=== PATIENT | female | born 1950 | race Caucasian/White ===

== ENCOUNTER 2017-03-28 07:41 | Emergency (ER) | payer MEDICARE, OTHER ==
[~2017-03-28] VITALS: Ht 154.9 cm; Wt 65.0 kg
[~2017-03-28 07:41] MED LIST: AMLO-145 PO; ASPI-664 PO; ATOR20TA38 PO; DOCU-144 PO; HYDR-906 PO; HYDR12.58 PO; METO25TA7 PO; NIT4 SL; PANT40TA4 PO; TIZA4TAB PO; TRAM50TA2 PO
[2017-03-28 07:43] VITALS: Ht 154.9 cm; Wt 65.0 kg
[2017-03-28 08:40] LABS: BASOPHILS % 0.3 % (0.0-2.0); EOSINOPHILS # 0.2 10^3/ul (0.0-0.5); EOSINOPHILS % 3.7 % (0.0-7.0); HEMATOCRIT 39.8 % (37.0-47.0); HEMOGLOBIN 13.1 g/dl (12.0-16.0); LYMPHOCYTES # 1.7 10^3/ul (0.8-2.9); LYMPHOCYTES % 28.6 % (15.0-51.0); MEAN CORPUSCULAR HEMOGLOBIN 29.8 pg (29.0-33.0); MEAN CORPUSCULAR HGB CONC 32.9 g/dl (32.0-37.0); MEAN CORPUSCULAR VOLUME 90.5 fl (82.0-101.0); MEAN PLATELET VOLUME 10.8 fl (7.4-10.4); MONOCYTE # 0.4 10^3/ul (0.3-0.9); MONOCYTES % 7.4 % (0.0-11.0); NEUTROPHIL # 3.5 10^3/ul (1.6-7.5); NEUTROPHILS % 59.5 % (39.0-77.0); PLATELET COUNT 305 10^3/UL (140-415); RED CELL DISTRIBUTION WIDTH 13.4 % (11.5-14.5); WHITE BLOOD COUNT 5.9 10^3/ul (4.8-10.8)
[2017-03-28 09:19] LABS: ALBUMIN 4.5 g/dl (3.3-4.9); ALBUMIN/GLOBULIN RATIO 1.18; BILIRUBIN,INDIRECT 0.6 mg/dl (0-1.1); BILIRUBIN,TOTAL 0.6 mg/dl (0.2-1.3); CALCIUM 9.8 mg/dl (8.4-10.2); CREATININE 0.86 mg/dl (0.44-1.00); POTASSIUM 4.3 mmol/L (3.5-5.1); TOTAL PROTEIN 8.3 g/dl (6.1-8.1)
[2017-03-28 11:00] LABS: ADD UMIC NO; UR ASCORBIC ACID NEGATIVE (NEGATIVE); UR BILIRUBIN (Dip) NEGATIVE (NEGATIVE); UR BLOOD (Dip) NEGATIVE (NEGATIVE); UR CLARITY CLEAR (CLEAR); UR COLOR STRAW (YELLOW); UR GLUCOSE (Dip) NEGATIVE (NEGATIVE); UR KETONES (Dip) NEGATIVE (NEGATIVE); UR LEUKOCYTE ESTERASE (Dip) NEGATIVE Leu/ul (NEGATIVE); UR NITRITE (Dip) NEGATIVE (NEGATIVE); UR SPECIFIC GRAVITY (Dip) 1.006 (1.003-1.030); UR TOTAL PROTEIN (Dip) NEGATIVE (NEGATIVE); UR UROBILINOGEN (Dip) NEGATIVE (NEGATIVE)
[2017-03-28 11:34] VITALS: BP 156/78; PULSE 76; RESP 20; TEMP 98
--- NOTE | 2017-03-28 13:09 | ERD ---
ER Documentation Chief Complaint Date/Time DATE: 03/28/17 TIME: 13:04 Chief Complaint PT WITH HYPERTENTION, VOMITING AND WEAKNESS x 3 DAYS. HPI 66-year-old female coming in complaining of hypertension. Patient states she feels occasional weakness and woke up this morning sweating. Denies shortness of breath. Denies chest pain. Denies dizziness. Denies vomiting. She has taking her high blood pressure medication without complication. She states she felt different this morning and wanted to be evaluated. Denies any numbness or tingling. Medical history: Hypertension, hypothyroidism. NKDA. Surgical history: Hysterectomy ROS All systems reviewed and are negative except as per history of present illness. Medications Home Meds Active Scripts Docusate Sodium* (Colace*) 100 Mg Capsule, 100 MG PO BID, #60 CAP Prov:HILDA MARTINEZ MD 05/18/16 Hydrochlorothiazide* (Hydrochlorothiazide*) 12.5 Mg Tablet, 12.5 MG PO DAILY, # 30 TAB Prov:HILDA MARTINEZ MD 05/18/16 Nitroglycerin* (Nitrostat*) 0.4 Mg Tab.subl, 1 TAB SL .Q5M UP TO 3 DOSES Y for CHEST PAIN, #30 Prov:HILDA MARTINEZ MD 05/18/16 Metoprolol Succinate* (Toprol XL*) 25 Mg Tab.sr.24h, 25 MG PO DAILY, #30 Prov:HILDA MARTINEZ MD 05/18/16 Amlodipine Besylate* (Amlodipine Besylate*) 5 Mg Tablet, 10 MG PO DAILY, #30 TAB Prov:HILDA MARTINEZ MD 05/18/16 Tizanidine Hcl* (Tizanidine Hcl*) 4 Mg Tablet, 4 MG PO Q6H Y for SPASTICITY, # 12 TAB Prov:MINISTERIO WOODS DO 05/14/16 Tramadol HCl (Tramadol HCl) 50 Mg Tablet, 50 MG PO Q6, #15 TAB Prov:MINISTERIO WOODS DO 05/14/16 Hydrocodone/Acetaminophen ([place] 5-325 Tablet) 1 Each Tablet, 1 TAB PO Q6H Y for PAIN, #7 TAB Prov:EMILY ANDREA MD 05/13/16 Reported Medications Atorvastatin Calcium* (Atorvastatin Calcium*) 20 Mg Tablet, 20 MG PO QHS, #30 TAB 05/17/16 Pantoprazole* (Pantoprazole*) 40 Mg Tablet.dr, 40 MG PO AC BREAKFAST, TAB 05/02/15 Aspirin* (Aspirin* EC) 81 Mg Tablet.dr, 81 MG PO DAILY, TAB 05/02/15 Allergies Allergies: Coded Allergies: amlodipine (Verified Allergy, Intermediate, per pt feels warm, 05/18/16) tramadol (Verified Adverse Reaction, Intermediate, per pt gets warm , 05/18) PMhx/Soc History of Surgery: Yes (hysterrectomy) Anesthesia Reaction: No Hx Neurological Disorder: Yes Hx Respiratory Disorders: No Hx Cardiac Disorders: Yes (hypertension) Hx Psychiatric Problems: No Hx Miscellaneous Medical Probl: No Hx Alcohol Use: No Hx Substance Use: No Hx Tobacco Use: No Smoking Status: Never smoker Physical Exam Vitals Vital Signs Date Time Temp Pulse Resp B/P Pulse Ox O2 Delivery O2 Flow Rate FiO2 03/28/17 11:34 98.0 76 20 156/78 99 Room Air 03/28/17 07:43 97.3 78 20 180/79 99 Physical Exam GENERAL: The patient is well-appearing, well-nourished, in no acute distress HEENT: Atraumatic. Conjunctivae are pink. Pupils equal, round, and reactive to light. There is no scleral icterus. Tympanic membranes clear bilaterally. Oropharynx clear. No nystagmus or photophobia. NECK: C-spine is soft and supple. There is no meningismus. There is no cervical lymphadenopathy. No JVD. No bruits. No goiter. CHEST: Clear to auscultation bilaterally. There are no rales, wheezes or rhonchi. HEART: Regular rate and rhythm. No murmurs, clicks, rubs or gallops. No S3 or S4. ABDOMEN:Soft, nontender and nondistended. Good bowel sounds. No rebound or guarding. No gross peritonitis. No gross organomegaly or masses. No Livingston sign or McBurney point tenderness. NEUROLOGIC: Alert and oriented. Cranial nerves II through XII intact. Motor strength in all 4 extremities with 5 out of 5 strength. Sensation grossly intact. Normal speech and gait. Babinski negative. DTR 2+ throughout. Result Diagram: 03/28/17 0810 03/28/17 0810 Results 24 hrs Laboratory Tests Test 03/28/17 08:10 03/28/17 10:44 White Blood Count 5.910^3/ul Red Blood Count 4.4010^6/ul Hemoglobin 13.1g/dl Hematocrit 39.8% Mean Corpuscular Volume 90.5fl Mean Corpuscular Hemoglobin 29.8pg Mean Corpuscular Hemoglobin Concent 32.9g/dl Red Cell Distribution Width 13.4% Platelet Count 59023^3/UL Mean Platelet Volume 10.8fl Neutrophils % 59.5% Lymphocytes % 28.6% Monocytes % 7.4% Eosinophils % 3.7% Basophils % 0.3% Nucleated Red Blood Cells % 0.0/100WBC Neutrophils # 3.510^3/ul Lymphocytes # 1.710^3/ul Monocytes # 0.410^3/ul Eosinophils # 0.210^3/ul Basophils # 0.010^3/ul Nucleated Red Blood Cells # 0.010^3/ul Sodium Level 137mmol/L Potassium Level 4.3mmol/L Chloride Level 102mmol/L Carbon Dioxide Level 24mmol/L Anion Gap 15 Blood Urea Nitrogen 18mg/dl Creatinine 0.86mg/dl Glucose Level 135mg/dl Calcium Level 9.8mg/dl Total Bilirubin 0.6mg/dl Direct Bilirubin 0.00mg/dl Indirect Bilirubin 0.6mg/dl Aspartate Amino Transf (AST/SGOT) 37IU/L Alanine Aminotransferase (ALT/SGPT) 52IU/L Alkaline Phosphatase 100IU/L Total Protein 8.3g/dl Albumin 4.5g/dl Globulin 3.80g/dl Albumin/Globulin Ratio 1.18 Lipase 56U/L Urine Color STRAW Urine Clarity CLEAR Urine pH 6.0 Urine Specific [place] 1.006 Urine Ketones NEGATIVEmg/dL Urine Nitrite NEGATIVEmg/dL Urine Bilirubin NEGATIVEmg/dL Urine Urobilinogen NEGATIVEmg/dL Urine Leukocyte Esterase NEGATIVELeu/ul Urine Hemoglobin NEGATIVEmg/dL Urine Glucose NEGATIVEmg/dL Urine Total Protein NEGATIVEmg/dl Procedures/MDM EKG: NSR. 64 BPM. Normal axis. No arrhythmias. No STEMI Reviewed and signed off by Dr. Arguello. MDM: I have low suspicion for cardiac or pulmonary emergency. I have low suspicion for hypertension emergency. Patient's exam is not concerning patient' s vital signs are stable and patient is nontoxic-appearing. I have low suspicion for electrolyte abnormality. I have low suspicion for sepsis or infectious etiology. Patient's blood work was within normal limits. Patient's urine was within normal limits. Patient's exams were not concerning. Patient is recommended to follow-up with primary care physician within 1 to days for close evaluation. Patient is given strict ER precautions at the time of discharge. All the questions at the time of discharge. Departure Diagnosis: Primary Impression: Multiple complaints Condition: Stable Patient Instructions: High Blood Pressure (Hypertension) Referrals: [facility] YOU HAVE RECEIVED A MEDICAL SCREENING EXAM AND THE RESULTS INDICATE THAT YOU DO NOT HAVE A CONDITION THAT REQUIRES URGENT TREATMENT IN THE EMERGENCY DEPARTMENT. FURTHER EVALUATION AND TREATMENT OF YOUR CONDITION CAN WAIT UNTIL YOU ARE SEEN IN YOUR DOCTORS OFFICE WITHIN THE NEXT 1-2 DAYS. IT IS YOUR RESPONSIBILITY TO MAKE AN APPOINTMENT FOR FOLOW-UP CARE. IF YOU HAVE A PRIMARY DOCTOR --you should call your primary doctor and schedule an appointment IF YOU DO NOT HAVE A PRIMARY DOCTOR YOU CAN CALL OUR PHYSICIAN REFERRAL HOTLINE AT IF YOU CAN NOT AFFORD TO SEE A PHYSICIAN YOU CAN CHOSE FROM THE FOLLOWING [facility] [address] [facility]. [facility] [address] [facility] [facility] [address] [facility] [facility] [address] [facility]. [facility] [address] [facility]. [facility]. [address] Additional Instructions: FOLLOW UP WITH YOUR PRIMARY CARE PHYSICIAN TOMORROW.Return to this facility if you are not improving as expected. NGOZI WERNER PA-C Mar 28, 2017 13:09
== END 2017-03-28 11:34 | disposition home or self-care (01) ==
LOC: FTE 07:41
DX: R53.1 Weakness (principal); I10 Essential (primary) hypertension; E03.9 Hypothyroidism, unspecified; Z79.82 Long term (current) use of aspirin
CPT/HCPCS: 36415; 80053; 81003; 83690; 85025; 93005

== ENCOUNTER 2017-05-26 16:31 | Emergency (ER) | payer MEDICARE, OTHER ==
[~2017-05-26] VITALS: Ht 152.4 cm; Wt 70.0 kg
[~2017-05-26 16:31] MED LIST changes: +METO-335 PO; -METO25TA7 PO
[2017-05-26 16:35] VITALS: Ht 152.4 cm; Wt 70.0 kg
[2017-05-26] MEDS ORDERED: LEVO50TA74 PO (20:09)
[2017-05-26] MEDS ORDERED: ONDA8TAB83 PO (20:09)
--- NOTE | 2017-05-26 20:10 | ERD ---
ER Documentation Chief Complaint Date/Time DATE: 05/26/17 TIME: 20:10 Chief Complaint chest pain which radiates to the left arm since this morning HPI 66-year-old woman complains of chest pain 2 days it has been sharp and radiating to the left arm. She states she has had similar symptoms in the past. She denies history of [place]. She has had no shortness of breath, no fevers or chills, no cough, no claudication, no calf or leg swelling. ROS All systems reviewed and are negative except as per history of present illness. Medications Home Meds Active Scripts Mag Hydrox/Al Hydrox/Simeth (Maalox Advanced Suspension) 355 Ml Oral.susp, 2 TSP PO TID for PAIN, #24 OZ Prov:RIUT PIERSON MD 05/26/17 Naproxen* (Naprosyn*) 500 Mg Tablet, 500 MG PO BID Y for PAIN AND/OR INFLAMMATION, #30 TAB Prov:RITU PIERSON MD 05/26/17 Reported Medications Acetaminophen (Mapap) 500 Mg Capsule, 500 MG PO Q6H Y for PAIN, CAP 05/26/17 Hydrochlorothiazide* (Hydrochlorothiazide*) 25 Mg Tab, 25 MG PO DAILY, #30 TAB 05/26/17 Metoprolol Succinate* (Toprol XL*) 50 Mg Tab.er.24h, 75 MG PO BID, #30 TAB 05/26/17 Ondansetron Hcl* (Ondansetron Hcl*) 8 Mg Tablet, 8 MG PO Q8, TAB 05/26/17 Levothyroxine Sodium* (Levothyroxine Sodium*) 50 Mcg Tablet, 50 MCG PO BEFORE BREAKFAST, #30 TAB 05/26/17 Atorvastatin Calcium* (Atorvastatin Calcium*) 20 Mg Tablet, 20 MG PO QHS, #30 TAB 05/17/16 Pantoprazole* (Pantoprazole*) 40 Mg Tablet.dr, 40 MG PO AC BREAKFAST, TAB 05/02/15 Aspirin* (Aspirin* EC) 81 Mg Tablet.dr, 81 MG PO DAILY, TAB 05/02/15 Discontinued Scripts Docusate Sodium* (Colace*) 100 Mg Capsule, 100 MG PO BID, #60 CAP Prov:HILDA MARTINEZ MD 05/18/16 Hydrochlorothiazide* (Hydrochlorothiazide*) 12.5 Mg Tablet, 12.5 MG PO DAILY, # 30 TAB Prov:HILDA MARTINEZ MD 05/18/16 Nitroglycerin* (Nitrostat*) 0.4 Mg Tab.subl, 1 TAB SL .Q5M UP TO 3 DOSES Y for CHEST PAIN, #30 Prov:HILDA MARTINEZ MD 05/18/16 Metoprolol Succinate* (Toprol XL*) 25 Mg Tab.sr.24h, 25 MG PO DAILY, #30 Prov:HILDA MARTINEZ MD 05/18/16 Amlodipine Besylate* (Amlodipine Besylate*) 5 Mg Tablet, 10 MG PO DAILY, #30 TAB Prov:HILDA MARTINEZ MD 05/18/16 Tizanidine Hcl* (Tizanidine Hcl*) 4 Mg Tablet, 4 MG PO Q6H Y for SPASTICITY, # 12 TAB Prov:MINISTERIO WOODS DO 05/14/16 Tramadol HCl (Tramadol HCl) 50 Mg Tablet, 50 MG PO Q6, #15 TAB Prov:MINISTERIO WOODS DO 05/14/16 Hydrocodone/Acetaminophen ([place] 5-325 Tablet) 1 Each Tablet, 1 TAB PO Q6H Y for PAIN, #7 TAB Prov:EMILY ANDREA MD 05/13/16 Allergies Allergies: Coded Allergies: amlodipine (Verified Allergy, Intermediate, per pt feels warm, 05/26/17) tramadol (Verified Adverse Reaction, Intermediate, per pt gets warm , 07/31) PMhx/Soc History of atypical chest pain, hypertension History of Surgery: Yes (hysterrectomy) Anesthesia Reaction: No Hx Neurological Disorder: Yes Hx Respiratory Disorders: No Hx Cardiac Disorders: Yes (hypertension) Hx Psychiatric Problems: No Hx Miscellaneous Medical Probl: No Hx Alcohol Use: No Hx Substance Use: No Hx Tobacco Use: No Smoking Status: Never smoker Physical Exam Vitals Vital Signs Date Time Temp Pulse Resp B/P Pulse Ox O2 Delivery O2 Flow Rate FiO2 05/26/17 22:23 73 20 137/67 100 Room Air 05/26/17 21:22 63 17 164/73 98 Room Air 05/26/17 19:43 69 17 150/85 100 Room Air 05/26/17 16:35 98.5 92 19 186/84 99 Physical Exam Const: [] Head: Atraumatic Eyes: Normal Conjunctiva ENT: Normal External Ears, Nose and Mouth. Neck: Full range of motion..~ No meningismus. Resp: Clear to auscultation bilaterally Cardio: Regular rate and rhythm, no murmurs Abd: Soft, non tender, non distended. Normal bowel sounds Skin: No petechiae or rashes Back: No midline or flank tenderness Ext: No cyanosis, or edema Neur: Awake and alert Psych: Normal Mood and Affect Result Diagram: 05/26/17192905/26/171929 Results 24 hrs Laboratory Tests Test 05/26/17 19:30 White Blood Count 9.210^3/ul Red Blood Count 4.3510^6/ul Hemoglobin 12.8g/dl Hematocrit 39.1% Mean Corpuscular Volume 89.9fl Mean Corpuscular Hemoglobin 29.4pg Mean Corpuscular Hemoglobin Concent 32.7g/dl Red Cell Distribution Width 13.3% Platelet Count 46258^3/UL Mean Platelet Volume 10.5fl Neutrophils % 54.8% Lymphocytes % 31.8% Monocytes % 9.4% Eosinophils % 3.4% Basophils % 0.3% Nucleated Red Blood Cells % 0.0/100WBC Neutrophils # 5.010^3/ul Lymphocytes # 2.910^3/ul Monocytes # 0.910^3/ul Eosinophils # 0.310^3/ul Basophils # 0.010^3/ul Nucleated Red Blood Cells # 0.010^3/ul Sodium Level 135mmol/L Potassium Level 3.3mmol/L Chloride Level 96mmol/L Carbon Dioxide Level 27mmol/L Anion Gap 15 Blood Urea Nitrogen 14mg/dl Creatinine 0.78mg/dl Glucose Level 125mg/dl Calcium Level 9.3mg/dl Total Bilirubin 0.6mg/dl Direct Bilirubin 0.00mg/dl Indirect Bilirubin 0.6mg/dl Aspartate Amino Transf (AST/SGOT) 47IU/L Alanine Aminotransferase (ALT/SGPT) 61IU/L Alkaline Phosphatase 102IU/L Troponin I < 0.012ng/ml Total Protein 8.4g/dl Albumin 4.6g/dl Globulin 3.80g/dl Albumin/Globulin Ratio 1.21 Lipase 53U/L Current Medications Medications (Trade) Dose Ordered Sig/Santy Route PRN Reason Start Time Stop Time Status Last Admin Dose Admin Sodium Chloride (NS) 1,000 ml @ 1,000 mls/hr Q1H STAT IV 05/26/17 20:12 05/26/17 21:11 DC 05/26/17 20:33 Ketorolac Tromethamine (Toradol) 15 mg ONCE STAT IV 05/26/17 20:12 05/26/17 20:13 DC 05/26/17 20:33 Lorazepam (Ativan) 0.5 mg ONCE ONCE PO 05/26/17 20:30 05/26/17 20:31 DC 05/26/17 20:33 Procedures/MDM IV line was established patient was placed on cardiac cath rn rhythm strip revealed a sinus rhythm at about 80 bpm with upright P and T waves. Patient was afebrile. EKG performed, read by me: 87 bpm, normal sinus rhythm, normal axis, no acute ST segment changes, narrow QRS complex, with good R-wave progression in precordial leads. One AP view of the chest performed, read by me reveals no acute infiltrates, normal mediastinum, sharp costophrenic and cardiac borders, no air under the diaphragm. Otherwise unremarkable chest x-ray. I administered 1 L normal saline intravenously, Toradol 15 mg IV, lorazepam 0.5 mg p.o. with complete resolution of pain. CBC and electrolytes are normal, liver function tests are normal, troponin was negative. The patient's history, physical exam and clinical presentation is concerning for possible cardiogenic etiology and acute coronary syndrome. Based on the patient's clinical exam and history and risk factors, I have a much lower clinical concern for pulmonary embolism, acute aortic dissection, pneumothorax, pneumonia, cardiac tamponade HEART Score: 3 for age and risk factors MACE Rate: 1.7 Shared Decision Making: We had a conversation regarding risk stratification, MACE rate, and the risks, benefits, alternatives of disposition planning options. Disposition planning: Patient symptoms resolved and she wanted to go home Differential diagnoses considered, included but not limited to acute coronary syndrome, pulmonary embolism, aortic dissection, abdominal aortic aneurysm, sepsis, stroke, meningitis, encephalitis, pneumonia, appendicitis, cholecystitis , bowel obstruction, pyelonephritis, nephrolithiasis, cystitis, as well as metabolic, hematologic, and electrolyte abnormalities. As well as abscess, cellulitis, fractures, and dislocations. Patient feels much better at this time, and vital signs are normal, symptoms have improved. I did give strict instructions to return to the ED if symptoms continue or worsen, patient will otherwise follow-up with primary care physician. Patient understood instructions and agreed to plan. Disclaimer: Inadvertent spelling and grammatical errors are likely due to EHR/ dictation software use and do not reflect on the overall quality of patient care. Also, please note that the electronic time recorded on this note does not necessarily reflect the actual time of the patient encounter. Departure Diagnosis: Primary Impression: Chest pain Chest pain type: unspecified Qualified Code: R07.9 - Chest pain, unspecified type Condition: RITU Castillo MD May 26, 2017 20:10
[2017-05-26] MEDS ORDERED: METO-319 PO (20:11)
[2017-05-26] MEDS ORDERED: HYDR25TA6 PO (20:11)
[2017-05-26] MEDS ORDERED: SOD CHLORIDE 0.9% 1,000 ML IV STA (20:12)
[2017-05-26] MEDS ORDERED: KETOROLAC 15 MG INJ IV STA (20:12)
[2017-05-26] MEDS ORDERED: ACET500C3 PO (20:12)
[2017-05-26 20:26] LABS: BASOPHILS % 0.3 % (0.0-2.0); EOSINOPHILS # 0.3 10^3/ul (0.0-0.5); EOSINOPHILS % 3.4 % (0.0-7.0); HEMATOCRIT 39.1 % (37.0-47.0); HEMOGLOBIN 12.8 g/dl (12.0-16.0); LYMPHOCYTES # 2.9 10^3/ul (0.8-2.9); LYMPHOCYTES % 31.8 % (15.0-51.0); MEAN CORPUSCULAR HEMOGLOBIN 29.4 pg (29.0-33.0); MEAN CORPUSCULAR HGB CONC 32.7 g/dl (32.0-37.0); MEAN CORPUSCULAR VOLUME 89.9 fl (82.0-101.0); MEAN PLATELET VOLUME 10.5 fl (7.4-10.4); MONOCYTE # 0.9 10^3/ul (0.3-0.9); MONOCYTES % 9.4 % (0.0-11.0); NEUTROPHILS % 54.8 % (39.0-77.0); PLATELET COUNT 330 10^3/UL (140-415); RED BLOOD COUNT 4.35 10^6/ul (4.20-5.40); RED CELL DISTRIBUTION WIDTH 13.3 % (11.5-14.5); WHITE BLOOD COUNT 9.2 10^3/ul (4.8-10.8)
[2017-05-26] MEDS ORDERED: LORAZEPAM 0.5 MG TAB PO ONE (20:30)
[2017-05-26 20:35] LABS: ALANINE AMINOTRANSFERASE 61 IU/L (13-69); ALBUMIN 4.6 g/dl (3.3-4.9); ALBUMIN/GLOBULIN RATIO 1.21; ALKALINE PHOSPHATASE 102 IU/L (42-121); ANION GAP 15 (8-16); ASPARTATE AMINO TRANSFERASE 47 IU/L (15-46); BILIRUBIN,INDIRECT 0.6 mg/dl (0-1.1); BILIRUBIN,TOTAL 0.6 mg/dl (0.2-1.3); BLOOD UREA NITROGEN 14 mg/dl (7-20); CALCIUM 9.3 mg/dl (8.4-10.2); CARBON DIOXIDE 27 mmol/L (21-31); CHLORIDE 96 mmol/L (97-110); CREATININE 0.78 mg/dl (0.44-1.00); GLUCOSE 125 mg/dl (70-220); POTASSIUM 3.3 mmol/L (3.5-5.1); SODIUM 135 mmol/L (135-144); TOTAL PROTEIN 8.4 g/dl (6.1-8.1)
[2017-05-26 20:49] LABS: TROPONIN-I < 0.012 ng/ml (0.00-0.12)
--- NOTE | 2017-05-26 20:59 | RADRPT ---
PROCEDURE: XR Chest. CLINICAL INDICATION: Chest and abdomen pain. TECHNIQUE: Single frontal view. COMPARISON: 05/16/2016. FINDINGS: The lungs are clear. The heart size is normal. There is calcification in the aorta consistent with atherosclerosis. There is no pleural effusion. There is no pneumothorax. IMPRESSION: 1. Atherosclerosis. 2. Otherwise normal chest x-ray. RPTAT: QQ .Ac Jade MD, MD Date Time Electronically viewed and signed by .Ac Jade MD, on 05/26/2017 20:58 .R/
[2017-05-26] MEDS ORDERED: NAPR-260 PO (21:51)
[2017-05-26] MEDS ORDERED: MAG355OR14 PO (21:51)
[2017-05-26 22:23] VITALS: BP 137/67; PULSE 73; RESP 20
== END 2017-05-26 22:20 | disposition home or self-care (01) ==
LOC: E/R 16:31
DX: R07.9 Chest pain, unspecified (principal); I10 Essential (primary) hypertension; Z79.82 Long term (current) use of aspirin
CPT/HCPCS: 36415; 71010; 80053; 83690; 84484; 85025; 96374; 99284; J1885; J7030

== ENCOUNTER 2018-11-29 19:58 | Emergency (ER) | payer MEDICARE, OTHER ==
[~2018-11-29] VITALS: Ht 152.4 cm; Wt 66.0 kg
[~2018-11-29 19:58] MED LIST changes: +ACET500C3 PO; -AMLO-145 PO; -ASPI-664 PO; +ASPI-817 PO; -DOCU-144 PO; -HYDR-906 PO; -HYDR12.58 PO; +HYDR25TA6 PO; +LEVO50TA7 PO; +MAG355OR14 PO; +METO-319 PO; -METO-335 PO; +NAPR-985 PO; -NIT4 SL; +ONDA8TAB83 PO; -TIZA4TAB PO; -TRAM50TA2 PO
[2018-11-29 20:10] VITALS: Ht 152.4 cm; Wt 66.0 kg
[2018-11-29] MEDS ORDERED: SOD CHLORIDE 0.9% 500 ML IV STA (22:58)
[2018-11-29] MEDS ORDERED: NICARDipine HCL 30 MG CAPSULE PO ONE (23:00)
[2018-11-29] MEDS ORDERED: LABETALOL HCL 20MG INJ IV ONE (23:00)
--- NOTE | 2018-11-29 23:43 | ERD ---
ER Documentation Chief Complaint Chief Complaint High BP today, c/o headache and neck pain. +Chest pressure HPI 68-year-old female with a history of hypertension presenting with high blood pressure today with associated frontal headache that she describes as aching, 6 out of 10, nonradiating. No associated vision disturbance, focal weakness, nausea, vomiting. She does feel some tingling around her mouth. No chest pain or shortness of breath. No fevers or chills. Normally her systolic blood pressure runs in the 120s-130s but today it was in the 200s. She is taking her medications as prescribed. ROS All systems reviewed and are negative except as per history of present illness. Medications Home Meds Active Scripts Mag Hydrox/Al Hydrox/Simeth (Maalox Advanced Suspension) 355 Ml Oral.susp, 2 TSP PO TID for PAIN, #24 OZ Prov:RITU PIERSON MD 05/26/17 Naproxen* (Naprosyn*) 500 Mg Tablet, 500 MG PO BID PRN for PAIN AND/OR INFLAMMATION, #30 TAB Prov:RITU PIERSON MD 05/26/17 Reported Medications Acetaminophen (Mapap) 500 Mg Capsule, 500 MG PO Q6H PRN for PAIN, CAP 05/26/17 Hydrochlorothiazide* (Hydrochlorothiazide*) 25 Mg Tab, 25 MG PO DAILY, #30 TAB 05/26/17 Metoprolol Succinate* (Toprol XL*) 50 Mg Tab.er.24h, 75 MG PO BID, #30 TAB 05/26/17 Ondansetron Hcl* (Ondansetron Hcl*) 8 Mg Tablet, 8 MG PO Q8, TAB 05/26/17 Levothyroxine Sodium* (Levothyroxine Sodium*) 50 Mcg Tablet, 50 MCG PO BEFORE BREAKFAST, #30 TAB 05/26/17 Atorvastatin Calcium* (Atorvastatin Calcium*) 20 Mg Tablet, 20 MG PO QHS, #30 TAB 05/17/16 Pantoprazole* (Pantoprazole*) 40 Mg Tablet.dr, 40 MG PO AC BREAKFAST, TAB 05/02/15 Aspirin* (Aspirin* EC) 81 Mg Tablet.dr, 81 MG PO DAILY, TAB 05/02/15 Allergies Allergies: Coded Allergies: amlodipine (Unverified Allergy, Intermediate, per pt feels warm, 11/30/18) tramadol (Unverified Adverse Reaction, Intermediate, per pt gets warm , 11/30/18) PMhx/Soc History of Surgery: Yes (hysterrectomy) Anesthesia Reaction: No Hx Neurological Disorder: Yes Hx Respiratory Disorders: No Hx Cardiac Disorders: Yes (hypertension, hLD) Hx Psychiatric Problems: No Hx Miscellaneous Medical Probl: No Hx Alcohol Use: No Hx Substance Use: No Hx Tobacco Use: No Smoking Status: Never smoker FmHx Family History: No diabetes Physical Exam Vitals Vital Signs Date Temp Pulse Resp B/P (MAP) Pulse Ox O2 O2 Flow FiO2 Time Delivery Rate 11/30/18 98.3 66 20 132/58 99 Room Air 00:02 (82) 11/29/18 98.3 77 20 204/86 99 20:10 (125) Physical Exam Const: No acute distress Head: Atraumatic Eyes: Normal Conjunctiva, PERRLA, EOMI, no nystagmus ENT: Normal External Ears, Nose and Mouth. Neck: Full range of motion. No meningismus. Resp: Clear to auscultation bilaterally Cardio: Regular rate and rhythm, no murmurs. 2+ distal pulses in all 4 extre mities Abd: Soft, non tender, non distended. Normal bowel sounds Skin: No petechiae or rashes Back: No midline or flank tenderness Ext: No cyanosis, or edema Neur: Awake and alert, oriented x3. Cranial nerves intact. Facial sensation is intact bilaterally to painful stimuli. Normal speech without dysarthria or aphasia. Strength and sensations intact in all 4 extremities. Normal cerebellar exam. Psych: Normal Mood and Affect Result Diagram: 11/29/18220411/29/182204 Results 24 hrs Laboratory Tests Test 11/29/18 22:05 White Blood Count 10.8 10^3/ul Red Blood Count 4.03 10^6/ul Hemoglobin 12.3 g/dl Hematocrit 35.9 % Mean Corpuscular Volume 89.1 fl Mean Corpuscular Hemoglobin 30.5 pg Mean Corpuscular Hemoglobin Concent 34.3 g/dl Red Cell Distribution Width 12.6 % Platelet Count 346 10^3/UL Mean Platelet Volume 10.1 fl Immature Granulocytes % 0.400 % Neutrophils % 63.3 % Lymphocytes % 23.0 % Monocytes % 8.8 % Eosinophils % 4.2 % Basophils % 0.3 % Nucleated Red Blood Cells % 0.0 /100WBC Immature Granulocytes # 0.040 10^3/ul Neutrophils # 6.8 10^3/ul Lymphocytes # 2.5 10^3/ul Monocytes # 1.0 10^3/ul Eosinophils # 0.5 10^3/ul Basophils # 0.0 10^3/ul Nucleated Red Blood Cells # 0.0 10^3/ul Sodium Level 129 mmol/L Potassium Level 3.4 mmol/L Chloride Level 91 mmol/L Carbon Dioxide Level 28 mmol/L Anion Gap 10 Blood Urea Nitrogen 14 mg/dl Creatinine 0.91 mg/dl Est Glomerular Filtrat Rate mL/min > 60 mL/min Glucose Level 151 mg/dl Calcium Level 9.4 mg/dl Troponin I < 0.012 ng/ml Current Medications Medications Dose Sig/Santy Start Time Status Last (Trade) Ordered Route PRN Stop Time Admin Dose Reason Admin Nicardipine 30 mg ONCE ONCE 11/29/18 DC HCl PO 23:00 (Cardene) 11/29/18 23:01 Labetalol 20 mg ONCE ONCE 11/29/18 DC 11/29/18 HCl IV 23:00 23:14 (Labetalol) 11/29/18 23:01 Sodium 500 ml @ Q1H STAT 11/29/18 DC 11/29/18 Chloride 500 mls/hr IV 22:58 23:11 11/29/18 23:57 Procedures/MDM EMERGENT LABS AND DIAGNOSTIC STUDIES: Lab Results above were reviewed and interpreted by me. CBC: no anemia or evidence of infection BMP: Hyponatremia, hypochloremia. No e/o severe acidosis, alkalosis, renal failure, diabetic ketoacidosis Troponin within normal limits, not indicative of cardiac ischemia 12-lead EKG was interpreted by Courtney Arguello MD: Normal Sinus Rhythm Normal axis Normal intervals No acute ST or T wave changes suggestive of acute ischemia or STEMI. Radiology Results as interpreted by Radiology below were reviewed by Kamla Arguello MD: Chest x-ray shows no acute abnormalities Initial Nursing notes reviewed. Previous Medical Records requested via the Electronic Health Record. EMERGENCY DEPARTMENT COURSE / MEDICAL DECISION MAKING: Patient presents with hypertension and associated headache with facial tingling. However her symptoms have improved prior to her coming into her room. Her blood pressure is significantly elevated when compared to her baseline. However her neurologic exam is normal and I have a low suspicion for intracranial hemorrhage or stroke. Patient was treated with IV antihypertensives with improvement of her hypertension. She was noted to have mild hyponatremia of unclear etiology. This may be medication related. Upon reevaluation, patient f eels much better and her blood pressure has improved. I recommended follow-up with her primary care doctor within the next 2 days and recommended recheck of her sodium. She was encouraged to return to the ER for any worsening symptoms. At this time I doubt hypertensive emergency. The patient was counseled about the risks of hypertension and urged to pursue outpatient monitoring and therapy with in a week with their primary care physician. Departure Diagnosis: Primary Impression: Hypertensive urgency, malignant Additional Impression: Hyponatremia Condition: Stable Patient Instructions: Hyponatremia, Hypertension, Established, Out Of Control Additional Instructions: Odalys raciel yeison con higuera medico primario en 2 weiss. Si belgica sintomas empeoran, regresa a la esther de emergencias. FLAVIO ARGUELLO MD Nov 29, 2018 23:43
[2018-11-30 00:02] VITALS: BP 132/58; PULSE 66; RESP 20
== END 2018-11-30 00:15 | disposition home or self-care (01) ==
LOC: E/R 19:58
DX: I16.0 Hypertensive urgency (principal); E87.1 Hypo-osmolality and hyponatremia
CPT/HCPCS: 36415; 71045; 80048; 84484; 85025; 93005; 96374; 99285; J7040